=== PATIENT | female | born 1955 | race American Indian/Alaskan Native ===

== ENCOUNTER 2021-11-15 17:10 | Emergency (ER) | payer OTHER ==
[2021-11-15] MEDS ORDERED: ACETAMINOPHEN 500 MG TAB PO ONE (23:28)
--- NOTE | 2021-11-15 23:41 | Emergency Department Report ---
ED General Adult HPI - General Chief complaint: Chest Pain Stated complaint: CHEST PAIN Source: patient Mode of arrival: Ambulatory Limitations: No Limitations - History of Present Illness Initial comments: Patient 66-year-old -F[place] female who presents for left lateral chest wall pain that radiates to left flank for past 2 days. Patient has history of COPD, HTN, and liver cyst. Pain is described at 5/10 achy burning per patient. Pain exacerbated by nothing. Pain is relieved by nothing tried. Patient denies shortness of breath there is no cough no fever no chills no wheezing no stridor. There is no dizziness no lightheadedness no nausea no vomiting. Patient denies smoking, denies other history. Patient drove self to ED tonight patient is ambulatory alert oriented x3 amatory steady gait speaking in complete sentences. There is no respiratory distress Severity scale (0 -10): 8 - Related Data Previous Rx's Medication Instructions Recorded Last Taken Type Naproxen [Naprosyn] 375 mg PO BID PRN #20 tablet 07/11/16 Unknown Rx traMADoL [Ultram 50 MG tab] 50 mg PO Q6HR PRN #14 tablet 07/11/16 Unknown Rx Acetaminophen 650 mg PO Q6H PRN #30 tab 11/16/21 Unknown Rx Albuterol Mdi (or & Nicu Only) 2 puff IH QID PRN #8.5 gram 11/16/21 Unknown Rx [ProAir HFA Inhaler] Azithromycin 500 mg PO DAILY 5 Days #5 tab 11/16/21 Unknown Rx predniSONE [Deltasone] 40 mg PO QDAY 5 Days #10 tab 11/16/21 Unknown Rx Allergies Allergy/AdvReac Type Severity Reaction Status Date / Time No Known Allergies Allergy Verified 08/02/13 14:30 ED Review of Systems ROS: Stated complaint: CHEST PAIN Other details as noted in HPI Constitutional: denies: chills, fever Eyes: denies: eye pain, eye discharge, vision change ENT: denies: ear pain, throat pain Respiratory: denies: cough, shortness of breath, wheezing Cardiovascular: chest pain Endocrine: no symptoms reported Gastrointestinal: denies: abdominal pain, nausea, vomiting, diarrhea Genitourinary: denies: urgency, dysuria, frequency, hematuria, discharge Musculoskeletal: back pain (Left Flank Pain). denies: joint swelling, arthralgia Skin: denies: rash, lesions Neurological: as per HPI. denies: headache, weakness, numbness, paresthesias, confusion, vertigo Psychiatric: denies: anxiety, depression Hematological/Lymphatic: denies: easy bleeding, easy bruising ED Past Medical Hx - Past Medical History Hx Hypertension: Yes (high cholesterol) Hx COPD: Yes Additional medical history: ulcers - Surgical History Additional Surgical History: hysterectomy - Social History Smoking Status: Current Every Day Smoker Substance Use Type: None - Medications Home Medications: Home Medications Medication Instructions Recorded Confirmed Last Taken Type Naproxen [Naprosyn] 375 mg PO BID PRN #20 tablet 07/11/16 Unknown Rx traMADoL [Ultram 50 MG tab] 50 mg PO Q6HR PRN #14 tablet 07/11/16 Unknown Rx Acetaminophen 650 mg PO Q6H PRN #30 tab 11/16/21 Unknown Rx Albuterol Mdi (or & Nicu Only) 2 puff IH QID PRN #8.5 gram 11/16/21 Unknown Rx [ProAir HFA Inhaler] Azithromycin 500 mg PO DAILY 5 Days #5 tab 11/16/21 Unknown Rx predniSONE [Deltasone] 40 mg PO QDAY 5 Days #10 tab 11/16/21 Unknown Rx ED Physical Exam - General Limitations: No Limitations General appearance: alert, in no apparent distress - Head Head exam: Present: normocephalic, normal inspection - Eye Eye exam: Present: normal appearance, EOMI Pupils: Present: normal accommodation - ENT ENT exam: Present: mucous membranes moist - Neck Neck exam: Present: normal inspection, full ROM. Absent: tenderness, lymphadenopathy - Respiratory Respiratory exam: Present: normal lung sounds bilaterally, chest wall tenderness (left lateral chest wall tenderness to deep palpation, no echymosis, no crepitus, no stepoff lung sounds clear throughout). Absent: respiratory distress, wheezes, rales, rhonchi, stridor - Cardiovascular Cardiovascular Exam: Present: regular rate, normal rhythm, normal heart sounds. Absent: systolic murmur, diastolic murmur, rubs, gallop - GI/Abdominal GI/Abdominal exam: Present: soft, normal bowel sounds. Absent: distended, tenderness, guarding, rebound, rigid, bruit, hernia - Rectal Rectal exam: Present: deferred - Extremities Exam Extremities exam: Present: normal inspection, full ROM, normal capillary refill. Absent: tenderness, pedal edema - Back Exam Back exam: Present: normal inspection, full ROM, CVA tenderness (L). Absent: CVA tenderness (R) - Neurological Exam Neurological exam: Present: alert, oriented X3, CN II-XII intact, normal gait - Expanded Neurological Exam Expanded Patient oriented to: Present: person, place, time Speech: Present: fluid speech Best Eye Response ([place]): (4) open spontaneously Best Motor Response ([place]): (6) obeys commands Best Verbal Response ([place]): (5) oriented [place] Total: 15 - Psychiatric Psychiatric exam: Present: normal affect, normal mood - Skin Skin exam: Present: warm, dry, intact, normal color. Absent: rash ED Course Vital Signs 11/15/21 17:24 Temperature 98.4 F Pulse Rate 82 Respiratory 18 Rate Blood Pressure 144/78 [Right] O2 Sat by Pulse 98 Oximetry ED Medical Decision Making - Lab Data Result diagrams: 11/15/21 23:40 11/15/21 23:40 Labs 11/15/21 11/15/21 11/15/21 23:40 23:40 23:41 WBC 16.2 H RBC 4.44 Hgb 13.1 Hct 40.9 MCV 92 MCH 30 MCHC 32 RDW 13.8 Plt Count 281 Lymph % (Auto) 27.1 [place] % (Auto) 7.1 Eos % (Auto) 1.5 Baso % (Auto) 0.7 Lymph # (Auto) [facility] [place] # (Auto) 1.1 H Eos # (Auto) 0.2 Baso # (Auto) 0.1 Seg Neutrophils % 63.6 Seg Neutrophils # 10.3 H Sodium 144 Potassium 3.5 L Chloride 103.7 Carbon Dioxide 26 Anion Gap 18 BUN 11 Creatinine 0.8 Estimated GFR > 60 BUN/Creatinine Ratio 14 Glucose 114 H Calcium 9.6 Total Bilirubin 0.30 AST 12 ALT 11 Alkaline Phosphatase 71 Troponin T < 0.010 Total Protein 6.7 Albumin 4.5 Albumin/Globulin Ratio 2.0 Lipase 62 H - EKG Data EKG shows normal: sinus rhythm, axis, intervals, QRS complexes, ST-T waves Rate: normal - EKG Data When compared to previous EKG there are: no significant change Interpretation: normal EKG (NSR NSTEMI, interp by ED Attending ) - Radiology Data Radiology results: report reviewed, image reviewed CHEST 2 VIEWS INDICATION / CLINICAL INFORMATION: Chest pain. COMPARISON: None available. FINDINGS: SUPPORT DEVICES: None. HEART / MEDIASTINUM: The heart size and pulmonary vasculature are normal. The aorta is normal in caliber. LUNGS / PLEURA: There are minimal linear parenchymal opacities in both lung bases laterally, more prominent on the left. No other pulmonary or pleural abnormality. No pneumothorax. ADDITIONAL FINDINGS: Mild thoracolumbar scoliosis. IMPRESSION: Minimal bibasilar subsegmental atelectasis. Signer Name: Marlon Rodriguez MD Signed: 11/16/2021 12:18 AM Workstation Name: [id number] Transcribed By: RT Dictated By: Marlon Rodriguez MD Electronically Authenticated By: Marlon Rodriguez MD Signed Date/Time: 11/16/2117 DD/ TD/TT: - Medical Decision Making Chest x-ray by bilateral bibasilar lower lobe infiltrate, heart score 0, ZACH score 0, patient advises symptoms are resolved with medications given in ED. Plan diagnosis COPD, chest pain, will be DC'd home in stable condition at this time. Patient DC'd with prescriptions, will follow with primary care doctor in 2 to 3 days. Patient will return to ED should symptoms worsen. Patient verbalized agreement and understanding with discharge plan. Patient DC'd home in stable condition at this time. Critical care attestation.: If time is entered above; I have spent that time in minutes in the direct care of this critically ill patient, excluding procedure time. ED Disposition Clinical Impression: Chest pain Qualifiers: Chest pain type: unspecified Qualified Code(s): R07.9 - Chest pain, unspecified COPD (chronic obstructive pulmonary disease) Qualifiers: COPD type: unspecified COPD Qualified Code(s): J44.9 - Chronic obstructive pulmonary disease, unspecified Disposition: 01 HOME / SELF CARE / HOMELESS Is pt being admited?: No Does the pt Need Aspirin: No Condition: Stable Instructions: Nonspecific Chest Pain, Adult, Chronic Obstructive Pulmonary Disease (ED), Chronic Obstructive Pulmonary Disease Exacerbation, [id number] Additional Instructions: Medications as prescribed, follow-up with your doctor in 2 to 3 days. Return to emergency department should symptoms worsen. Prescriptions: Acetaminophen 650 mg PO Q6H PRN #30 tab PRN Reason: pain Azithromycin 500 mg PO DAILY 5 Days #5 tab predniSONE [Deltasone] 40 mg PO QDAY 5 Days #10 tab Albuterol Mdi (or & Nicu Only) [ProAir HFA Inhaler] 2 puff IH QID PRN #8.5 gram PRN Reason: Shortness Of Breath Referrals: DEANDRA KOENIG [Other] - 3-5 Days LAURIE PAK MD [Staff Physician] - 3-5 Days Forms: Work/School Release Form(ED) Time of Disposition: 02:24
[2021-11-16 00:18] LABS: Alanine Aminotransferase 11 units/L (7-56); Albumin 4.5 g/dL (3.9-5); BUN/Creatinine Ratio 14; Blood Urea Nitrogen 11 mg/dL (7-17); Calcium 9.6 mg/dL (8.4-10.2); Hemolysis Index 5
--- NOTE | 2021-11-16 00:22 | XRay Report ---
CHEST 2 VIEWS INDICATION / CLINICAL INFORMATION: Chest pain. COMPARISON: None available. FINDINGS: SUPPORT DEVICES: None. HEART / MEDIASTINUM: The heart size and pulmonary vasculature are normal. The aorta is normal in greg rashaun. LUNGS / PLEURA: There are minimal linear parenchymal opacities in both lung bases laterally, more pro minent on the left. No other pulmonary or pleural abnormality. No pneumothorax. ADDITIONAL FINDINGS: Mild thoracolumbar scoliosis. IMPRESSION: Minimal bibasilar subsegmental atelectasis. Signer Name: Marlon Rodriguez MD Signed: 11/16/2021 12:18 AM Workstation Name: [id number]
[2021-11-16 00:40] LABS: Basophils # (Auto) 0.1 K/mm3 (0.0-0.1); Basophils % (Auto) 0.7 % (0.0-1.8); Eosinophils # (Auto) 0.2 K/mm3 (0.0-0.4); Eosinophils % (Auto) 1.5 % (0.0-4.3); Hematocrit 40.9 % (30.3-42.9); Hemoglobin 13.1 gm/dl (10.1-14.3); Lymphocytes % (Auto) 27.1 % (13.4-35.0); Mean Corpuscular HGB Conc 32 % (30-34); Mean Corpuscular Volume 92 fl (79-97); Monocytes # (Auto) 1.1 K/mm3 (0.0-0.8); Monocytes % (Auto) 7.1 % (0.0-7.3); Platelet Count 281 K/mm3 (140-440); Red Blood Count 4.44 M/mm3 (3.65-5.03); Red Cell Distribution Width 13.8 % (13.2-15.2)
[2021-11-16] MEDS ORDERED: predniSONE 20 MG TAB PO ONE (01:02)
[2021-11-16] MEDS ORDERED: AZITHROMYCIN 250 MG TAB PO ONE (01:02)
[2021-11-16 02:36] VITALS: BP 128/70
--- NOTE | 2021-11-16 08:09 | Electrocardiograph Report ---
[facility] Test Date: 2021-11-15 Test Time: 17:36:13 Pat Name: TABBY PATEL Department: Room: Gender: F Restorative Aide: NAS : 1955 Requested By: JANAE PINZON Order Number: [id number] Reading MD: Mateus Cruz Measurements Intervals [place] Rate: 77 P: 73 CO: 143 QRS: 72 QRSD: 75 T: 16 QT: 396 QTc: 450 Interpretive Statements Sinus rhythm Probable left atrial enlargement No previous ECG available for comparison Electronically Signed On 11-16-2021 8:09:41 EDT by Mateus Cruz
== END 2021-11-16 02:37 | disposition home or self-care (01) ==
LOC: ED 17:10
DX: J44.9 Chronic obstructive pulmonary disease, unspecified (principal); R07.89 Other chest pain; E78.00 Pure hypercholesterolemia, unspecified; F17.200 Nicotine dependence, unspecified, uncomplicated; Z90.710 Acquired absence of both cervix and uterus; Z79.899 Other long term (current) drug therapy
CPT/HCPCS: 36415; 71046; 80053; 83690; 84484; 85025; 93005; 99284